=== PATIENT | female | born 1925 | race Caucasian/White ===

== ENCOUNTER → 2016-09-02 | Outpatient (CLI) | payer MEDICARE ==
[2016-05-07 22:20] VITALS: BP 145/94
[~2016-09-02] MED LIST: ASPI-482 PO; ATORVASTATIN CA80 MG PO; BUPIVACAINE MPF 0.5% 30 ML VIAL. ONE; CALC-67 PO; CARB400T3 PO; CARBAMAZEPINE; CHOL10003 PO; EZET10TA3 PO; FURO80TA72 PO; GLIP5TAB10 PO; GUAR1TAB6 PO; INSU100V8 SQ; LEVO50TA PO; LOSA50TA6 PO; MULT-557 PO; OMEG10006 PO; SERT25TA4 PO; SPIR25TA3 PO; TRIA1TAB3 PO; methylPREDNISolone ACETATE 40 MG/ML VIAL. ONE
--- NOTE | 2016-09-02 13:31 | PN ---
DATE: 09/02/2016 PROGRESS NOTE FOR PAIN CLINIC DIAGNOSES: 1. Right trigeminal neuralgia. 2. Right knee joint pain. HISTORY OF PRESENT ILLNESS: The patient is an 89-year-old female who returns for followup status post previous supra and infraorbital nerve blocks, last seen 12/04/2015. The patient reports she did very well with this ____ block lasting almost 10 months with pain in the supraorbital area of the right eye and the forehead as well as infraorbital area over the zygomatic arch on the right side only. The patient reports this is a sharp pain, worse with cold and wind on her face, but has not had much of this as a fairly mild winter. Patient reports she has been doing very well, had very good success with pain relief over the summer of last year, and during the fall and through the winter with some increased pain now over the past month or so, the pain from 0-10 on a scale of 10/10 with looking down for prolonged periods with wind and cold on her face over the right eye, mainly in the right eyebrow and frontal region of the scalp and forehead and right baptist region as well. The patient reports no visual disturbances, no other complaints. PHYSICAL EXAMINATION: VITAL SIGNS: The patient's blood pressure 146/61, pulse 55, respirations 18, temperature 98.1 degrees Fahrenheit, height is 5 feet 2 inches, weight is 125 pounds. GENERAL: The patient is awake, alert, oriented, appropriate, very pleasant demeanor. HEENT: Head shows normocephalic, atraumatic. Extraocular movements are intact and symmetrical. Pupils are equal, round, reactive to light and accommodation. Oral cavity, mucous membranes are moist and pink. Dentition is intact. No lesions or rashes are demonstrated. The patient's right side of the face shows some moderate tenderness with light touch with some minor allodynia over the right eyebrow and just superior to this about 1-2 cm on the forehead. No discoloration, no rashes, no bruising, no other allodynia on the lateral aspect of the temporal or the infraorbital region. The patient shows good rotational motion of cervical spine, both laterally as well as full extension, full flexion without difficulty or pain reported. Options were discussed with the patient. The patient's old chart was reviewed. Current medication regimen and updated. Current review of systems updated today as well. We will proceed with a right-sided infra and supraorbital nerve blocks with risks discussed including, but not limited to bleeding, infection, possibility of intravascular injection sequelae, spread of local anesthetic and numbness, side effects of steroid medications as well as local anesthetic and toxicity and poor results regarding pain control. The patient understands and wishes to proceed. The patient will return to clinic in approximately 4 weeks or as necessary sooner or after and like to call for next appointment. The patient was counseled on activity levels as well as side effects to be aware of. DIAGNOSIS: Right trigeminal neuralgia. PROCEDURE: Right supra and infraorbital nerve blocks using local anesthetic under sterile prep and drape, medications and injections a total of 40 mg Depo-Medrol plus total of 2 mL of 0.5% bupivacaine with negative aspiration at each injection site. Patient's condition at discharge is stable. The patient tolerated procedure well, had no complications. KODY COURTNEY MD DR: MANOJ/trudi JOB#: [id number] / [id number]
== END | disposition home or self-care (01) ==
LOC: PNCL 11:30
PROVIDERS: ATTEND Anesthesiology
DX: G50.0 Trigeminal neuralgia (principal); E78.00 Pure hypercholesterolemia, unspecified; I10 Essential (primary) hypertension; K21.9 Gastro-esophageal reflux disease without esophagitis; M19.90 Unspecified osteoarthritis, unspecified site; E11.9 Type 2 diabetes mellitus without complications; E03.9 Hypothyroidism, unspecified; F32.9 Major depressive disorder, single episode, unspecified; D64.9 Anemia, unspecified; Z90.49 Acquired absence of other specified parts of digestive tract; Z90.710 Acquired absence of both cervix and uterus
CPT/HCPCS: 64450; J1030; J3490

== ENCOUNTER 2016-11-17 22:45 | Emergency (ER) | payer BC ==
[2016-05-07 22:20] VITALS: BP 145/94
[~2016-11-17 22:45] MED LIST changes: -BUPIVACAINE MPF 0.5% 30 ML VIAL. ONE; +CALC-31 PO; -CALC-67 PO; +EZET10TA18 PO; -EZET10TA3 PO; -methylPREDNISolone ACETATE 40 MG/ML VIAL. ONE
[2016-11-19] MEDS ORDERED: HYDR12.58 PO (21:44)
[2016-11-19] MEDS ORDERED: INSU100I13 SQ (21:44)
[2016-11-22] MEDS ORDERED: CIPR250T30 PO (10:22)
== END 2016-11-17 23:46 | disposition left against medical advice (07) ==
LOC: ER 22:45
DX: R11.2 Nausea with vomiting, unspecified (principal); E86.0 Dehydration; R19.7 Diarrhea, unspecified; Z53.21 Procedure and treatment not carried out due to patient leaving prior to being seen by health care provider